=== PATIENT | female | born 1955 | race Caucasian/White ===

== ENCOUNTER 2017-07-15 09:04 | Emergency (ER) | payer OTHER ==
[~2017-07-15] VITALS: Ht 167.6 cm; Wt 83.5 kg
[~2017-07-15 09:04] MED LIST: LISI2.5T59 PO
[2017-07-15 09:09] VITALS: Ht 167.6 cm; Wt 83.5 kg
--- NOTE | 2017-07-15 09:20 | ERD ---
ER Documentation Chief Complaint Date/Time DATE: 07/15/17 TIME: 09:18 Chief Complaint UTI SYMPTOMS X 2 WEEKS HPI This is a 62-year-old female who presents the emergency department today with her complaining of burning and pain with urination for the past 2 weeks. States she is taking Motrin. States that she try to call her primary care doctor but was not able to get an appointment until next month. Denies any fevers or chills, vomiting, back pain ROS All systems reviewed and are negative except as per history of present illness. Medications Home Meds Active Scripts Ibuprofen* (Motrin*) 600 Mg Tab, 600 MG PO Q6, #30 TAB Prov:MALCOLM SHARMA PA-C 07/15/17 Cephalexin* (Keflex*) 500 Mg Capsule, 500 MG PO QID for 7 Days, CAP Prov:MALCOLM SHARMA PA-C 07/15/17 Reported Medications Lisinopril* (Lisinopril*) 2.5 Mg Tablet, 2.5 MG PO DAILY, TAB 06/04/14 Allergies Allergies: Coded Allergies: Cortisone (Verified Allergy, Unknown, 06/04/14) PMhx/Soc History of Surgery: No Anesthesia Reaction: No Hx Neurological Disorder: No Hx Respiratory Disorders: No Hx Cardiac Disorders: Yes (htn) Hx Psychiatric Problems: No Hx Miscellaneous Medical Probl: No Hx Alcohol Use: Yes (social) Hx Substance Use: No Hx Tobacco Use: No Physical Exam Vitals Vital Signs Date Time Temp Pulse Resp B/P Pulse Ox O2 Delivery O2 Flow Rate FiO2 07/15/17 09:09 98.7 88 18 131/68 97 Physical Exam Const: NAD Head: Atraumatic Eyes: Normal Conjunctiva ENT: Normal External Ears, Nose and Mouth. Neck: Full range of motion..~ No meningismus. Resp: Clear to auscultation bilaterally Cardio: Regular rate and rhythm, no murmurs Abd: Soft, mild suprapubic tenderness non distended. Normal bowel sounds no tenderness at McBurney's. Skin: No petechiae or rashes Back: No midline or flank tenderness Ext: No cyanosis, or edema Neur: Awake and alert Psych: Normal Mood and Affect Results 24 hrs Laboratory Tests Test 07/15/17 10:08 Bedside Urine pH (LAB) 7.0 Bedside Urine Protein (LAB) Negative Bedside Urine Glucose (UA) Negative Bedside Urine Ketones (LAB) Negative Bedside Urine Blood Negative Bedside Urine Nitrite (LAB) Negative Bedside Urine Leukocyte Esterase (L 1+ Procedures/MDM This 62-year-old female who presents the emergency department today complaining of burning and pain with urination for the past 2 weeks. Given this I did obtain a UA UA shows 1+ leukocyte esterase. Negative nitrites. Negative for hematuria. Symptoms at this time is consistent with urinary tract infection. She is given a prescription for Motrin and Keflex. Patient is afebrile and otherwise well- appearing. She has no flank pain. Low suspicion for pyelonephritis or nephrolithiasis. At this time the patient is stable for discharge and outpatient management. Patient should follow up with their PCP in the next 1-2 days. They may return to the emergency department sooner for any persistent or worsening of symptoms. Patient understood and agreed with the plan. Departure Diagnosis: Primary Impression: UTI (urinary tract infection) Urinary tract infection type: site unspecified Hematuria presence: without hematuria Qualified Code: N39.0 - Urinary tract infection without hematuria, site unspecified Condition: MALCOLM Machado PA-C Jul 15, 2017 09:20
[2017-07-15 10:01] LABS: URINE BLOOD (Dip) POC Negative (NEGATIVE)
[2017-07-15] MEDS ORDERED: IBUP-1542 PO (10:13)
[2017-07-15] MEDS ORDERED: CEPH-443 PO (10:13)
== END 2017-07-15 10:30 | disposition home or self-care (01) ==
LOC: FTE 09:04
DX: N39.0 Urinary tract infection, site not specified (principal); I10 Essential (primary) hypertension
CPT/HCPCS: 81003; 99283